=== PATIENT | female | born 1945 | race Caucasian/White ===

== ENCOUNTER → 2017-05-28 | Outpatient (CLI) | payer MEDICARE ==
--- NOTE | 2017-05-28 19:48 | WWHP ---
DATE OF SERVICE: 05/28/17 CHIEF COMPLAINT: The patient is here for her routine gynecological exam. HISTORY OF PRESENT ILLNESS: This is a 71 -year-old G4, P3, 1, 0, 5 with an LMP of 1977. 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 The patient is without gynecological complaints. PAST MEDICAL HISTORY: Hypothyroidism, chronic hypertension, elevated cholesterol and osteopenia. She was on Fosamax for several years and this was discontinued 11/2016. Medications: 1. Levothyroxine 50 mcg daily. She takes one and one half on Sundays. 2. Lisinopril 20 mg daily. 3. Simvastatin 20 mg daily. ALLERGIES TO MOLD AND POLLEN but there are no known drug allergies. 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 SOCIAL HISTORY: She denies tobacco and drug use and has one to two alcohol drinks per week. She is but lives with her ex-. REVIEW OF SYSTEMS: Weight has been stable. She denies respiratory or cardiac problems. GI: Occasional stomach upset with spicy foods. She denies maltreatment or falling. : She denies significant problems with urinary leakage. PHYSICAL EXAM: Blood pressure 124/77. Height 5 feet 0 inches, weight 152 pounds. Temperature 97.6. Pulse 66. This is a well developed, well nourished white female who is alert and oriented times three in no acute distress. HEENT : is within normal limits. Neck is supple without mass or thyromegaly. Chest and lungs clear to auscultation. Heart is regular rate and rhythm. Breasts without mass or discharge. Axillary exam is negative for adenopathy. Back negative for CVA tenderness. Abdomen is soft and nontender without palpable masses. Pelvic exam, external genitalia reveals mild to moderate atrophy without lesions. Vagina reveals mild to moderate atrophy without lesions. A Grade II rectocele is noted. Vaginal cuff is well supported. Bimanual exam is negative for mass or tenderness. Rectovaginal exam is negative for mass or tenderness but does confirm a small rectocele. This is negative for occult blood. Extremities nontender. IMPRESSION: 1. 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 2. Asymptomatic Grade II rectocele. 3. History of osteopenia status post several years use of Fosamax which has been discontinued. PLAN: 1. Pap smears have been discontinued since last years was negative and her hysterectomy was more than 20 years ago. 2. Self breast examination was discussed. 3. Mammogram was done 02/2017 at [facility] and was benign. She will repeat this in one year. 4. Osteoporosis prevention was discussed. She will continue to do bone density testing through Dr. Cox as she has done in the past. 5. She does get flu shots in the fall. 6. She will return in one year. TAMIKO
== END ==
LOC: WWCWWP 07:44
PROVIDERS: ATTEND Obstetrics & Gynecology
DX: Z01.419 Encounter for gynecological examination (general) (routine) without abnormal findings (principal)

== ENCOUNTER 2021-11-28 08:07 | Day surgery (SDC) | payer MEDICARE ==
[2021-11-23 14:51] VITALS: BMI 25.9
[~2021-11-28 08:07] MED LIST: LACTATED RINGERS 1,000 ML IV SCH
[2021-11-28 08:59] VITALS: TEMP 98.6
[2021-11-28] MEDS ORDERED: LACTATED RINGERS 1,000 ML IV ONE (08:59)
[2021-11-28] MEDS ORDERED: PROPOFOL 10 MG/ML 20 ML VIAL IV ONE (09:58)
--- NOTE | 2021-11-28 10:15 | P.PCN ---
Date of Procedure: 11/28/21 Procedure(s) Performed: BRIEF HISTORY: Patient is a 75-year-old pleasant white femalescheduled for an elective colonoscopy as a part of evaluation of prior history of colon polyps and family history of colon cancer diagnosed in her dad at age 60. Her last colonoscopy was 5 years ago. PROCEDURE PERFORMED: Colonoscopy. PREOPERATIVE DIAGNOSIS: History of colon polyps and family history of colon cancer. IV sedation per Anesthesia. PROCEDURE: After informed consent was obtained, the patient, was brought into the endoscopy unit. IV sedation was administered by Anesthesia under continuous monitoring. Digital rectal examination was normal. Initially the Olympus CF-160 flexible video colonoscope was then inserted in the rectum, gradually advanced into the cecum without any difficulty. Careful examination was performed as the scope was gradually being withdrawn. Ileocecal valve and the appendiceal orifice were visualized and appeared normal. Prep was excellent. Mucosa of the cecum, ascending colon, transverse colon, descending colon, sigmoid colon, and rectum appeared normal. Retroflexion was performed in the rectum and no lesions were seen. The patient tolerated the procedure well. IMPRESSION: Normal-appearing colon from rectum to cecum no evidence of colorectal neoplasia. Scattered left-sided diverticulosis. RECOMMENDATIONS: Findings of this examination were discussed with the patient as well as a family. She was advised to have a repeat screening colonoscopy in 5 years from now because of family history of colon cancer.
[2021-11-28 10:28] VITALS: RESP 16
[2021-11-28 10:34] VITALS: BP 104/60; PULSE 71
== END 2021-11-28 10:56 | disposition home or self-care (01) ==
LOC: ORWHC2ENDO 08:07
PROVIDERS: ATTEND Internal Medicine Gastroenterology
DX: Z12.11 Encounter for screening for malignant neoplasm of colon (principal); K57.30 Diverticulosis of large intestine without perforation or abscess without bleeding; Z86.010 Personal history of colon polyps; Z80.0 Family history of malignant neoplasm of digestive organs; I10 Essential (primary) hypertension; E78.5 Hyperlipidemia, unspecified; E07.9 Disorder of thyroid, unspecified; Z97.2 Presence of dental prosthetic device (complete) (partial); Z79.899 Other long term (current) drug therapy; Z79.890 Hormone replacement therapy
CPT/HCPCS: J2704; G0105; 45378